=== PATIENT | male | born 1995 | race Caucasian/White ===

== ENCOUNTER 2023-07-18 17:46 | Emergency (ER) | payer MEDICAID ==
[~2023-07-18] VITALS: Ht 170.2 cm; Wt 113.4 kg
[2023-07-18] MEDS ORDERED: CYCLOBENZAPRINE 10 MG TABLET ONE (20:00)
[2023-07-18] MEDS ORDERED: IBUPROFEN 400 MG TABLET ONE (20:01)
[2023-07-18] MEDS: CYCLOBENZAPRINE 10 MG TABLET PO ONE (20:05)
[2023-07-18] MEDS: IBUPROFEN 400 MG TABLET PO ONE (20:06)
[2023-07-18] MEDS ORDERED: ACET-2605 PO (20:38)
[2023-07-18] MEDS ORDERED: IBUP-1955 PO (20:38)
[2023-07-18] MEDS ORDERED: CYCL5TAB PO (20:38)
[2023-07-18 23:57] VITALS: BP 146/91; TEMP 97.8; O2SAT 96
== END 2023-07-18 23:57 | disposition home or self-care (01) ==
LOC: ER 18:06
DX: S09.90XA Unspecified injury of head, initial encounter (principal); W20.8XXA Other cause of strike by thrown, projected or falling object, initial encounter; Y93.89 Activity, other specified; Y92.89 Other specified places as the place of occurrence of the external cause; Y99.8 Other external cause status